=== PATIENT | female | born 1990 | race Caucasian/White ===

== ENCOUNTER 2017-08-02 17:37 | Emergency (ER) | payer BC ==
[~2017-08-02] VITALS: Ht 162.6 cm; Wt 81.8 kg
[~2017-08-02 17:37] MED LIST: FERROUS SU325 MG/TAB PO; MOTRIN 800800 MG/TAB PO; PERCOCET 325 MG1 TA2 PO; PRENATAL MVI; ZANTAC 7575 MG PO
[2017-08-02 17:42] VITALS: TEMP 97.9
[2017-08-02] MEDS ORDERED: ZOLOFT 50MG50 MG PO (17:59)
[2017-08-02] MEDS ORDERED: ORTHO-CYCLEN 351 TAB PO (17:59)
[2017-08-02] MEDS ORDERED: ADIPEX-P37.5 MG PO (18:00)
[2017-08-02] MEDS ORDERED: NORCO 325 MG-51 TAB PO (20:36)
[2017-08-02] MEDS ORDERED: CEPHALEXIN500 M1 PO (20:36)
[2017-08-02 20:48] VITALS: BP 123/85; PULSE 72
== END 2017-08-02 20:48 | disposition home or self-care (01) ==
LOC: COL.ER 17:37
DX: S62.661A Nondisplaced fracture of distal phalanx of left index finger, initial encounter for closed fracture (principal); W29.3XXA Contact with powered garden and outdoor hand tools and machinery, initial encounter; Y92.009 Unspecified place in unspecified non-institutional (private) residence as the place of occurrence of the external cause
CPT/HCPCS: J0690